=== PATIENT | female | born 1975 | race Caucasian/White ===

== ENCOUNTER 2016-02-23 08:41 | Outpatient (CLI) | payer OTHER | END 2016-02-23 08:42 | disposition home or self-care (01) | DX: M51.17 Intervertebral disc disorders with radiculopathy, lumbosacral region (principal); M47.26 Other spondylosis with radiculopathy, lumbar region; M51.16 Intervertebral disc disorders with radiculopathy, lumbar region; M48.07 Spinal stenosis, lumbosacral region ==